=== PATIENT | female | born 1995 | race American Indian/Alaskan Native ===

== ENCOUNTER 2017-03-23 17:33 | Emergency (ER) | payer BC ==
[2017-03-23] MEDS ORDERED: Sodium Chloride 0.9% 10 ML Syringe FLUSH PRN (18:21)
[2017-03-23] MEDS ORDERED: Sodium Chloride 0.9% 1,000 ML IV ONE (18:21)
[2017-03-23] MEDS ORDERED: Ondansetron 4 MG/2 ML SDV IVPUSH ONE (18:21)
[2017-03-23] MEDS ORDERED: HYDROmorphone 0.5 MG/0.5 ML Syringe IVPUSH ONE (18:22)
--- NOTE | 2017-03-23 18:33 | EDM.PDOC ---
ED HPI GENERAL MEDICAL PROBLEM - General Chief Complaint: Abdominal Pain Stated Complaint: ABDOMINAL PAIN Time Seen by Provider: 03/23/17 18:07 Source of Information: Reports: Patient History Limitations: Reports: No Limitations - History of Present Illness INITIAL COMMENTS - FREE TEXT/NARRATIVE: Patient is a 21-year-old female presents ED complaining of right upper quadrant abdominal pain. Patient states she has a history of gallbladder issues and knows that she has some gallstones present from 7 years. States as of the last few months patient has been having pain to the right upper quadrant after eating. States the pain would radiate into her right shoulder. Pain predominantly comes on after eating. She has noticed the pain come on at night while she is sleeping as well. As of recent pain has been more frequent and severe. Currently the pain with admission to the ED is rated a 10 out of 10. Patient has no additional past medical history and currently taking no medications. Patient states she is not and is on the depo shot. Last bowel movement was this a.m. described as being hard. Patient states last meal was at noon today. Right Upper Abdominal Pain Score (Numeric/FACES): 10 - Related Data Allergies Allergy/AdvReac Type Severity Reaction Status Date / Time mangos Allergy Hives Uncoded 03/23/17 17:39 Home Meds: Home Meds Acetaminophen/HYDROcodone [[place] 325-5 MG] 1 tab PO Q6H PRN #15 tablet 03/23/17 [Rx] Dicyclomine [Bentyl] 20 mg PO TID PRN #15 tab 03/23/17 [Rx] Losartan/Hydrochlorothiazide [Losartan-HCTZ 50-12.5 MG] 1 tab PO DAILY 03/23/17 [History] Ondansetron [Zofran ODT] 4 mg PO Q6H PRN #12 tab.dis 03/23/17 [Rx] Past Medical History Cardiovascular History: Reports: Hypertension Gastrointestinal History: Reports: Other (See Below) Other Gastrointestinal History: gallstones Social & Family History - Tobacco Use Smoking Status *Q: Never Smoker - Recreational Drug Use Recreational Drug Use: No ED ROS GENERAL - Review of Systems Review Of Systems: See Below Constitutional: Reports: Decreased Appetite. Denies: Fever, Chills, Malaise, Weakness HEENT: Reports: No Symptoms Respiratory: Reports: No Symptoms Cardiovascular: Reports: No Symptoms GI/Abdominal: Reports: Abdominal Pain, Constipation, Decreased Appetite. Denies : Anorexia, Black Stool, Bloody Stool, Diarrhea, Distension, Flatus, Hematochezia, Nausea, Vomiting : Denies: Dysuria, Flank Pain, Frequency, Hematuria, Urgency Musculoskeletal: Denies: Back Pain ED EXAM, GI/ABD - Physical Exam Exam: See Below Exam Limited By: No Limitations General Appearance: Alert, WD/WN, Mild Distress Ears: Hearing Grossly Normal Nose: Normal Inspection Throat/Mouth: Normal Voice, No Airway Compromise Neck: Normal Inspection, Supple Respiratory/Chest: No Respiratory Distress, Lungs Clear, Normal Breath Sounds, No Accessory Muscle Use Cardiovascular: Normal Peripheral Pulses, Regular Rate, Rhythm GI/Abdominal Exam: Soft, No Organomegaly, No Distention, No Mass, Tender ( positive Lloyd sign , negative McBurney's point), Abnormal Bowel Sounds ( hyperactive), Other (obese) Back Exam: Normal Inspection, Full Range of Motion. No: CVA Tenderness (L), CVA Tenderness (R) Extremities: Normal Inspection, Non-Tender, No Pedal Edema, Normal Capillary Refill Neurological: Alert, Oriented, CN II-XII Intact Psychiatric: Normal Affect, Normal Mood Skin Exam: Warm, Dry, Intact, Normal Color Course - Vital Signs Last Recorded V/S: Last Vital Signs Temp 97.3 F 03/23/17 17:40 Pulse 78 03/23/17 23:31 Resp 16 03/23/17 23:31 BP 140/88 03/23/17 23:31 Pulse Ox 100 03/23/17 23:31 - Orders/Labs/Meds Orders: Active Orders 24 hr Category Date Time Status Peripheral IV Care [RC] . DIRECTED Care 03/23/17 18:21 Active Peripheral IV Insertion Adult [OM.PC] Stat Oth 03/23/17 18:20 Ordered Labs: Laboratory Tests 03/23/17 03/23/17 03/23/17 Range/Units 17:50 17:50 17:50 WBC 11.76 H (3.98-10.04) K/mm3 RBC 4.30 (3.98-5.22) M/mm3 Hgb 13.3 (11.2-15.7) gm/L Hct 41.4 (34.1-44.9) % MCV 96.3 H (79.4-94.8) fl MCH 30.9 (25.6-32.2) pg MCHC 32.1 L (32.2-35.5) g/dl RDW Std Deviation 52.4 H (36.4-46.3) fL Plt Count 341 (182-369) K/mm3 MPV 10.8 (9.4-12.3) fl Neut % (Auto) 46.9 (34.0-71.1) % Lymph % (Auto) 22.6 (19.3-51.7) % [place] % (Auto) 8.6 (4.7-12.5) % Eos % (Auto) 21.3 H (0.7-5.8) Baso % (Auto) 0.3 (0.1-1.2) % Neut # (Auto) 5.51 (1.56-6.13) K/mm3 Lymph # (Auto) 2.66 (1.18-3.74) K/mm3 [place] # (Auto) 1.01 H (0.24-0.36) K/mm3 Eos # (Auto) 2.51 H (0.04-0.36) K/mm3 Baso # (Auto) 0.04 (0.01-0.08) K/mm3 Manual Slide Review Abnormal smear Sodium 141 (136-145) mEq/L Potassium 3.6 (3.5-5.1) mEq/L Chloride 104 (98-107) mEq/L Carbon Dioxide 26 (21-32) mEq/L Anion Gap 14.6 (5-15) BUN 8 (7-18) mg/dL Creatinine 0.9 (0.55-1.02) mg/dL Est Cr Clr Drug Dosing 94.54 mL/min Estimated GFR (MDRD) > 60 (>60) mL/min BUN/Creatinine Ratio 8.9 L (14-18) Glucose 98 (74-106) mg/dL Calcium 9.3 (8.5-10.1) mg/dL Total Bilirubin 0.7 (0.2-1.0) mg/dL GGT (5-55) U/L AST 74 H (15-37) U/L ALT 102 H (14-59) U/L Alkaline Phosphatase 274 H (46-116) U/L C-Reactive Protein 0.2 (<1.0) mg/dL Total Protein 8.3 H (6.4-8.2) g/dl Albumin 3.8 (3.4-5.0) g/dl Globulin 4.5 gm/dL Albumin/Globulin Ratio 0.8 L (1-2) Lipase 63 L (73-393) U/L HCG, Qual Negative (NEGATIVE) Urine Color (Yellow) Urine Appearance (Clear) Urine pH (5.0-8.0) Ur Specific [place] (1.005-1.030) Urine Protein (Negative) Urine Glucose (UA) (Negative) Urine Ketones (Negative) Urine Occult Blood (Negative) Urine Nitrite (Negative) Urine Bilirubin (Negative) Urine Urobilinogen (0.2-1.0) Ur Leukocyte Esterase (Negative) Urine RBC (0-5) /hpf Urine WBC (0-5) /hpf Ur Epithelial Cells (0-5) /hpf Urine Bacteria (FEW) /hpf Urine Mucus (FEW) /hpf 03/23/17 03/23/17 Range/Units 17:50 18:41 WBC (3.98-10.04) K/mm3 RBC (3.98-5.22) M/mm3 Hgb (11.2-15.7) gm/L Hct (34.1-44.9) % MCV (79.4-94.8) fl MCH (25.6-32.2) pg MCHC (32.2-35.5) g/dl RDW Std Deviation (36.4-46.3) fL Plt Count (182-369) K/mm3 MPV (9.4-12.3) fl Neut % (Auto) (34.0-71.1) % Lymph % (Auto) (19.3-51.7) % [place] % (Auto) (4.7-12.5) % Eos % (Auto) (0.7-5.8) Baso % (Auto) (0.1-1.2) % Neut # (Auto) (1.56-6.13) K/mm3 Lymph # (Auto) (1.18-3.74) K/mm3 [place] # (Auto) (0.24-0.36) K/mm3 Eos # (Auto) (0.04-0.36) K/mm3 Baso # (Auto) (0.01-0.08) K/mm3 Manual Slide Review Sodium (136-145) mEq/L Potassium (3.5-5.1) mEq/L Chloride (98-107) mEq/L Carbon Dioxide (21-32) mEq/L Anion Gap (5-15) BUN (7-18) mg/dL Creatinine (0.55-1.02) mg/dL Est Cr Clr Drug Dosing mL/min Estimated GFR (MDRD) (>60) mL/min BUN/Creatinine Ratio (14-18) Glucose (74-106) mg/dL Calcium (8.5-10.1) mg/dL Total Bilirubin (0.2-1.0) mg/dL GGT 497 H (5-55) U/L AST (15-37) U/L ALT (14-59) U/L Alkaline Phosphatase (46-116) U/L C-Reactive Protein (<1.0) mg/dL Total Protein (6.4-8.2) g/dl Albumin (3.4-5.0) g/dl Globulin gm/dL Albumin/Globulin Ratio (1-2) Lipase (73-393) U/L HCG, Qual (NEGATIVE) Urine Color Light yellow (Yellow) Urine Appearance Clear (Clear) Urine pH 7.0 (5.0-8.0) Ur Specific [place] 1.015 (1.005-1.030) Urine Protein Negative (Negative) Urine Glucose (UA) Negative (Negative) Urine Ketones Negative (Negative) Urine Occult Blood Negative (Negative) Urine Nitrite Negative (Negative) Urine Bilirubin Negative (Negative) Urine Urobilinogen 1.0 (0.2-1.0) Ur Leukocyte Esterase Negative (Negative) Urine RBC Not seen (0-5) /hpf Urine WBC 0-5 (0-5) /hpf Ur Epithelial Cells 0-5 (0-5) /hpf Urine Bacteria Not seen (FEW) /hpf Urine Mucus Not seen (FEW) /hpf Meds: Medications Discontinued Medications Generic Name Dose Route Start Last Admin Trade Name Freq PRN Reason Stop Dose Admin Dicyclomine HCl Confirm 03/23/17 23:19 03/23/17 23:35 Bentyl Administered 03/23/17 23:20 20 mg Dose Administration 20 mg .ROUTE .STK-MED ONE Dicyclomine HCl 20 mg 03/23/17 23:21 Bentyl PO 03/23/17 23:22 ONETIME STA Glycopyrrolate 0.2 mg 03/23/17 22:36 03/23/17 23:20 Robinul IVPUSH 03/23/17 22:37 Not Given ONETIME ONE Hydromorphone HCl 0.5 mg 03/23/17 18:22 03/23/17 18:44 Dilaudid IVPUSH 03/23/17 18:23 0.5 mg ONETIME ONE Administration Hydromorphone HCl 1 mg 03/23/17 22:20 03/23/17 22:47 Dilaudid IVPUSH 03/23/17 22:21 1 mg ONETIME ONE Administration Sodium Chloride 1,000 mls @ 999 mls/hr 03/23/17 18:21 03/23/17 18:44 Normal Saline IV 03/23/17 19:21 999 mls/hr ONETIME ONE Administration Ondansetron HCl 4 mg 03/23/17 18:21 03/23/17 18:45 Zofran IVPUSH 03/23/17 18:22 4 mg ONETIME ONE Administration Sodium Chloride 10 ml 03/23/17 18:21 03/23/17 18:48 Saline Flush FLUSH 10 ml ASDIRECTED PRN Administration Keep Vein Open - Re-Assessments/Exams Free Text/Narrative Re-Assessment/Exam: Labs reviewed: White blood cell count 11.76, hemoglobin is 13.3, sodium 141, potassium 3.6, creatinine 0.9, AST 74, AST 102, alk phosphatase is 274, CRP 0.2 , total bilirubin 0.7, lipase 63, and hCG is negative. Ultrasound will be delayed. Patient actually ate at approximately 3:00 this afternoon. This was not disclosed to me with initial examination. Ultrasound will be obtained at 9:00. X-ray of the abdomen: nonspecific air in stool pattern with no acute findings. Final interpretation is pending. Ultrasound revealed: Cholelithiasis 03/23/17 22:[address] Dia General Surgeon states he can see the patient in his office. Call tomorrow morning to schedule appt to be seen either tomorrow or of this week. Suggested robinul 0.2mg IVP. Discharge home with bentyl and narcotic pain medications. Per nursing Robinul is not available. Ordered Bentyl 20 mg by mouth prior to patient leaving. Departure - Departure Time of Disposition: 22:39 Disposition: Home, Self-Care 01 Condition: Good Clinical Impression: Biliary colic - Discharge Information Prescriptions: Acetaminophen/HYDROcodone [[place] 325-5 MG] 1 tab PO Q6H PRN #15 tablet PRN Reason: Pain (Severe 7-10) Dicyclomine [Bentyl] 20 mg PO TID PRN #15 tab PRN Reason: Other Ondansetron [Zofran ODT] 4 mg PO Q6H PRN #12 tab.dis PRN Reason: Nausea/Vomiting Instructions: Abdominal Pain, Adult, [id number], Pain Medicine Instructions, [id number] Referrals: PCP,Not In Area [Primary Care Provider] - Shawn Dia MD [Physician] - Forms: ED Department Discharge Additional Instructions: You are experiencing biliary colic with ultrasound revealing gallstones present. I have spoken with Dr. Dia general surgeon on-call. He will see you tomorrow or in his clinic. Call his office tomorrow morning to schedule an appointment. For severe pain take [place] one tab every 4-6 hours. For nausea take Zofran 4 mg every 6 hours. Will have you take Bentyl 20 mg 3 times a day as needed. Start MiraLAX one capful every day with copious amounts of water and Colace 100 mg twice a day for 5 days. Take MiraLAX for at least one month. No driving this evening since receiving a sedative medications. Return to ED for any new or worsening symptoms. Suggest sticking with a low residue diet until evaluated by Dr. Dia. Refrain from any fatty foods. - My Orders Last 24 Hours: My Active Orders 03/23/17 18:20 Peripheral IV Insertion Adult [OM.PC] Stat 03/23/17 18:21 Peripheral IV Care [RC] . DIRECTED - Assessment/Plan Last 24 Hours: My Active Orders 03/23/17 18:20 Peripheral IV Insertion Adult [OM.PC] Stat 03/23/17 18:21 Peripheral IV Care [RC] . DIRECTED
[2017-03-23] MEDS ORDERED: HYDROmorphone 1 MG/ML Syringe IVPUSH ONE (22:20)
[2017-03-23] MEDS ORDERED: Glycopyrrolate 0.2 MG/ML SDV IVPUSH ONE (22:36)
[2017-03-23] MEDS ORDERED: Dicyclomine 10 MG Cap ONE (23:19)
[2017-03-23] MEDS ORDERED: Dicyclomine 10 MG Cap PO STA (23:21)
[2017-03-23 23:33] VITALS: BP 140/88
--- NOTE | 2017-03-24 07:06 | CR ---
Abdomen: Supine and upright views of the abdomen were obtained. Comparison: No previous study. Bowel gas pattern is within normal limits. Minimal increased stool is noted within the colon. No free air is seen. No abnormal calcifications or discrete soft tissue abnormality is seen. Impression: 1. Incidental findings. Diagnostic code #2
--- NOTE | 2017-03-24 07:15 | US ---
Limited abdominal ultrasound: Multiple real-time images were obtained of the upper right abdomen. Comparison: No previous abdominal ultrasound. Liver shows no focal parenchymal abnormality. Single large gallstone noted within the gallbladder measuring 2.6 cm. No gallbladder wall thickening or biliary duct dilatation is seen. Visualized portions of the pancreas are within normal limits. Right kidney shows no hydronephrosis or mass. Right kidney measures 11.6 cm in length. Inferior vena cava is patent. Impression: 1. Single large gallstone within the gallbladder. No gallbladder wall thickening or biliary duct dilatation is seen. 2. No additional abnormality is identified on right upper quadrant abdominal ultrasound. Diagnostic code #3 I agree with preliminary report issued by [facility] ([facility] preliminary report dictated on 03/23/17, 11:01 PM Central Time)
== END 2017-03-23 23:30 | disposition home or self-care (01) ==
LOC: JD.ED 17:33
DX: K80.50 Calculus of bile duct without cholangitis or cholecystitis without obstruction (principal); I10 Essential (primary) hypertension; Z91.048 Other nonmedicinal substance allergy status
CPT/HCPCS: 36415; 74020; 76705; 80053; 81001; 82977; 83690; 84703; 85025; 86140; 96361; 96374; 96375; 96376; 99285; A9270; J1170; J2405; J7040; J7050; 99284

== ENCOUNTER 2017-03-27 08:01 | Day surgery (SDC) | payer BC ==
[~2017-03-27 08:01] MED LIST: Lidocaine 1%/Sod Bicarbonate in NS 8.4% 1 ML Syringe IV PRN; Sodium Chloride 0.9% 10 ML Syringe FLUSH PRN
[2017-03-27] MEDS ORDERED: Lidocaine 1% with EPINEPHrine 1:100,000 20 ML MDV ONE (08:13)
[2017-03-27] MEDS ORDERED: Bupivacaine 0.5%/EPINEPHrine 1:200,000 50 ML MDV ONE (08:14)
[2017-03-27] MEDS: Lactated Ringers 1,000 ML IV SCH ×2 (08:25→13:19)
[2017-03-27] MEDS ORDERED: fentaNYL 250 MCG/5 ML SDV ONE (08:45)
[2017-03-27] MEDS ORDERED: Midazolam 1 MG/ML 2 ML SDV ONE (08:45)
[2017-03-27] MEDS ORDERED: Propofol 200 MG/20 ML SDV ONE (08:45)
--- NOTE | 2017-03-27 08:45 | PCM.PREANE ---
Preanesthetic Assessment - Anesthesia/Transfusion/Family Hx Anesthesia History: No Prior Anesthesia Family History of Anesthesia Reaction: No Transfusion History: No Prior Transfusion(s) - Review of Systems General: No Symptoms Pulmonary: No Symptoms Cardiovascular: Other (HTN controlled with medication ) Gastrointestinal: Abdominal Pain Neurological: No Symptoms Other: Reports: None - Physical Assessment NPO Status Date: 03/26/17 NPO Status Time: 15:30 O2 Sat by Pulse Oximetry: 99 Respiratory Rate: 18 Vital Signs: Last Vital Signs Temp 36.0 C 03/27/17 08:05 Pulse 78 03/27/17 08:05 Resp 18 03/27/17 08:05 BP 140/98 H 03/27/17 08:05 Pulse Ox 99 03/27/17 08:05 Height: 1.7 m Weight: 113.398 kg ASA Class: 2 Mental Status: Alert & Oriented x3 Airway Class: Mallampati = 1 Dentition: Reports: Normal Dentition Thyro-Mental Finger Breadths: 3 Mouth Opening Finger Breadths: 3 ROM/Head Extension: Full Lungs: Clear to Auscultation, Normal Respiratory Effort Cardiovascular: Regular Rate, Regular Rhythm - Lab Values: Laboratory Last Values Urine HCG, Qual Negative (NEGATIVE) 03/27/17 08:05 - Allergies Allergies/Adverse Reactions: Allergies Allergy/AdvReac Type Severity Reaction Status Date / Time mangos Allergy Hives Uncoded 03/27/17 07:53 - Blood Blood Available: No Product(s) Available: None - Anesthesia Plan Pre-Op Medication Ordered: None - Acknowledgements Anesthesia Type Planned: General Anesthesia Pt an Appropriate Candidate for the Planned Anesthesia: Yes Alternatives and Risks of Anesthesia Discussed w Pt/Guardian: Yes Pt/Guardian Understands and Agrees with Anesthesia Plan: Yes PreAnesthesia Questionnaire HEENT History: Reports: Impaired Vision, Other (See Below) Other HEENT History: glasses, contacts Cardiovascular History: Reports: Hypertension Respiratory History: Reports: None Gastrointestinal History: Reports: Other (See Below) Other Gastrointestinal History: gallstones, biliary colic Genitourinary History: Reports: None ARTIST AGENT History: Reports: None Musculoskeletal History: Reports: None Neurological History: Reports: None Psychiatric History: Reports: None Endocrine/Metabolic History: Reports: None Hematologic History: Reports: None Immunologic History: Reports: None Oncologic (Cancer) History: Reports: None Dermatologic History: Reports: None - Past Surgical History Head Surgeries/Procedures: Reports: None Respiratory Surgical History: Reports: None Female Surgical History: Reports: None Endocrine Surgical History: Reports: None Neurological Surgical History: Reports: None Musculoskeletal Surgical History: Reports: None Dermatological Surgical History: Reports: None - SUBSTANCE USE Smoking Status *Q: Never Smoker Recreational Drug Use History: No - HOME MEDS Home Medications: Home Meds oxyCODONE HCl/Acetaminophen [Percocet 10-325 mg Tablet] 1 tab PO Q6H PRN [History] - CURRENT (IN HOUSE) MEDS Current Meds: Current Medications Lactated Ringer's (Ringers, Lactated) 1,000 mls @ 125 mls/hr IV ASDIRECTED CLAIRE Lidocaine/Sodium Bicarbonate (Buffered Lidocaine 1% In Ns 8.4%) 0.25 ml IV ONETIME PRN PRN Reason: Prior to IV Start Sodium Chloride (Saline Flush) 10 ml FLUSH ASDIRECTED PRN PRN Reason: Keep Vein Open Discontinued Medications Bupivacaine HCl/Epinephrine Bitart (Marcaine 0.5%/Epinephrine 1:200,000) Confirm Administered Dose 50 ml .ROUTE .STK-MED ONE Stop: 03/27/17 08:15 Dexamethasone (Dexamethasone) Confirm Administered Dose 20 mg .ROUTE .STK-MED ONE Stop: 03/27/17 08:49 Fentanyl (Sublimaze) Confirm Administered Dose 250 mcg .ROUTE .STK-MED ONE Stop: 03/27/17 08:46 Lidocaine/Epinephrine (Xylocaine 1% With Epinephrine 1:100,000) Confirm Administered Dose 20 ml .ROUTE .STK-MED ONE Stop: 03/27/17 08:14 Midazolam HCl (Versed 1 Mg/Ml) Confirm Administered Dose 2 mg .ROUTE .STK-MED ONE Stop: 03/27/17 08:46 Ondansetron HCl (Zofran) Confirm Administered Dose 4 mg .ROUTE .STK-MED ONE Stop: 03/27/17 08:49 Propofol (Diprivan 20 Ml) Confirm Administered Dose 200 mg .ROUTE .STK-MED ONE Stop: 03/27/17 08:46 Rocuronium [place] (Zemuron) Confirm Administered Dose 50 mg .ROUTE .STK-MED ONE Stop: 03/27/17 08:49
[2017-03-27] MEDS ORDERED: Ondansetron 4 MG/2 ML SDV ONE (08:48)
[2017-03-27] MEDS ORDERED: Rocuronium 50 MG/5 ML Vial ONE (08:48)
[2017-03-27] MEDS ORDERED: Dexamethasone 4 MG/ML 5 ML MDV ONE (08:48)
[2017-03-27] MEDS ORDERED: HYDROmorphone 1 MG/ML Syringe ONE ×2 (09:56→10:40)
[2017-03-27] MEDS ORDERED: Lactated Ringers 1,000 ML ONE (10:42)
[2017-03-27] MEDS ORDERED: fentaNYL 100 MCG/2 ML SDV ONE ×3 (11:26→11:54)
[2017-03-27] MEDS ORDERED: Ketorolac 30 MG/ML SDV ONE (11:38)
[2017-03-27] MEDS ORDERED: Lidocaine 1%/Sod Bicarbonate in NS 8.4% 1 ML Syringe PRN (11:45)
[2017-03-27] MEDS ORDERED: Ketorolac 30 MG/ML SDV IVPUSH ONE (11:45)
--- NOTE | 2017-03-27 12:12 | PCM.OPNOTE ---
- General Post-Op/Procedure Note Date of Surgery/Procedure: 03/27/17 Operative Procedure(s): Laparoscopic cholecystectomy Findings: Acute and chronic cholecystitis secondary to cholelithiasis. Patient had a 2-1/ 2 cm diameter greenish yellow stone. Pre Op Diagnosis: Biliary colic secondary to cholelithiasis Post-Op Diagnosis: Same Anesthesia Technique: General ET Tube, Local Primary Surgeon: Shawn Dia Pathology: Gallbladder and contents EBL in mLs: 10 Complications: None Condition: Good Free Text/Narrative:: After adequate general endotracheal tube anesthesia was obtained the patient's abdomen was prepped and draped sterilely for a laparoscopic cholecystectomy. A supraumbilical incision was made with a 15 blade after local analgesia was given. The incision was deepened with scissors to the midline which was opened with a 15 blade. A 12 mm camera port was inserted followed by CO2 pneumoperitoneum. The 3--5 mm working ports were placed along the right costal margin. The gallbladder was found to be distended. I made a small incision the dome of the gallbladder and aspirated its contents. The dome of the gallbladder was then grasped and it along with the liver was retracted in a cephalad direction. I grasped Crouch's pouch then dissected out the cystic duct and cystic artery. The cystic duct was clipped in continuity with 5 mm clips and divided with scissors. There was an anterior posterior branch related to the cystic artery which was controlled with clips as well. I then took the gallbladder down in a retrograde fashion with cautery. The gallbladder and its contents were placed in a specimen bag and removed via the umbilicus. I irrigated out the gallbladder bed and the right upper quadrant with saline. The area was hemostatic. There was no obvious bile duct or bowel injury. The abdomen was then decannulated under direct vision with no bleeding from the port sites. The subumbilical incision was closed with a [id number] 0 Vicryl suture. The subcutaneous tissues and skin were closed with Vicryl as well. Steri-Strips and gauze were used for the dressing. Photographs were taken for the patient for the record. The stone was returned to the patient. There were no complications.
[2017-03-27] MEDS ORDERED: Acetaminophen/oxyCODONE 325-5 MG Tab PO ONE (12:20)
[2017-03-27] MEDS ORDERED: fentaNYL 100 MCG/2 ML SDV IVPUSH PRN (12:30)
[2017-03-27] MEDS ORDERED: HYDROmorphone 0.5 MG/0.5 ML Syringe IVPUSH PRN (12:30)
[2017-03-27 14:14] VITALS: BP 145/79
== END 2017-03-27 14:05 | disposition home or self-care (01) ==
LOC: JD.SDS 08:01
PROVIDERS: ATTEND Surgery
PROC: 0FT44ZZ Resection of Gallbladder, Percutaneous Endoscopic Approach (ICD-10-PCS; principal; 2017-03-27)
DX: K81.1 Chronic cholecystitis (principal); I10 Essential (primary) hypertension; Z91.018 Allergy to other foods
CPT/HCPCS: 47562; 81025; A9270; J1100; J1170; J1885; J2250; J2405; J3010; J7120; 00790; J2704

== ENCOUNTER 2018-09-21 15:12 | Emergency (ER) | payer BC ==
[2018-09-21] MEDS ORDERED: Ondansetron 4 MG/2 ML SDV IVPUSH ONE (15:54)
[2018-09-21] MEDS ORDERED: Sodium Chloride 0.9% 10 ML Syringe FLUSH PRN (15:54)
[2018-09-21] MEDS ORDERED: LORazepam 2 MG/ML SDV IVPUSH ONE (15:54)
[2018-09-21] MEDS: Sodium Chloride 0.9% 1,000 ML IV SCH ×2 (16:20→17:42)
--- NOTE | 2018-09-21 17:02 | EDM.PDOCBH ---
ED HPI GENERAL MEDICAL PROBLEM - General Chief Complaint: Drug or Alcohol Abuse Stated Complaint: RT ARM INJURY ALCOHOL DETOX Time Seen by Provider: 09/21/18 15:44 Source of Information: Reports: Patient, RN Notes Reviewed - History of Present Illness INITIAL COMMENTS - FREE TEXT/NARRATIVE: 23-year-old female has been brought here by mother with 2 concerns the one being a fall last evening right elbow and proximal forearm pain. So she is going through some alcohol withdrawal today. Apparently she has been drinking fairly heavy for some time. Sounds like her last alcohol was last evening. Feels mildly shaky at this time. She has not been eating much. She did vomit once earlier today. No current chest or abdominal pain. She is scheduled to see an addiction intake counselor tomorrow to try get a plan of treatment figured out. right arm Pain Score (Numeric/FACES): 7 - Related Data Allergies Allergy/AdvReac Type Severity Reaction Status Date / Time mangos Allergy Hives Uncoded 09/21/18 15:33 Home Meds: Home Meds Carisoprodol 350 mg PO BEDTIME 09/21/18 [History] Dextroamphetamine/Amphetamine [Dextroamp-Amphetamin 30 mg Tab] 30 mg PO DAILY [History] Escitalopram [Lexapro] 10 mg PO DAILY 09/21/18 [History] Hydrochlorothiazide/Losartan [Hyzaar 50-12.5 MG] 12.5 - 50 mg PO DAILY 09/21/18 [History] Past Medical History HEENT History: Reports: Impaired Vision, Other (See Below) Other HEENT History: glasses, contacts Cardiovascular History: Reports: Hypertension Respiratory History: Reports: None Gastrointestinal History: Reports: Other (See Below) Other Gastrointestinal History: gallstones, biliary colic Genitourinary History: Reports: None PELTS SKINNER History: Reports: None Musculoskeletal History: Reports: None Neurological History: Reports: None Psychiatric History: Reports: Addiction Endocrine/Metabolic History: Reports: None Hematologic History: Reports: None Immunologic History: Reports: None Oncologic (Cancer) History: Reports: None Dermatologic History: Reports: None - Past Surgical History Head Surgeries/Procedures: Reports: None Respiratory Surgical History: Reports: None Female Surgical History: Reports: None Endocrine Surgical History: Reports: None Neurological Surgical History: Reports: None Musculoskeletal Surgical History: Reports: None Dermatological Surgical History: Reports: None Social & Family History - Family History Family Medical History: Noncontributory - Tobacco Use Smoking Status *Q: Never Smoker - Caffeine Use Caffeine Use: Reports: Soda - Alcohol Use Days Per Week of Alcohol Use: 7 Number of Drinks Per Day: 10 Total Drinks Per Week: 70 - Recreational Drug Use Recreational Drug Use: Yes Drug Use in Last 12 Months: Yes Recreational Drug Type: Reports: Marijuana/Hashish Other Recreational Drug Type: is currently on drug patch, for marijuana use, has not used since 02/2018 ED ROS GENERAL - Review of Systems Review Of Systems: See Below Constitutional: Denies: Fever, Chills HEENT: Reports: No Symptoms Respiratory: Denies: Shortness of Breath Cardiovascular: Denies: Chest Pain GI/Abdominal: Reports: Decreased Appetite (Now better), Nausea. Denies: Abdominal Pain, Vomiting Musculoskeletal: Reports: Joint Pain (Right elbow and right proximal forearm) Skin: Reports: No Symptoms Neurological: Denies: Numbness, Tingling ED EXAM, BEHAVIORAL HEALTH - Physical Exam Exam: See Below General Appearance: Alert, Anxious (Mild), Mild Distress Eye Exam: Bilateral Eye: PERRL Throat/Mouth: Normal Inspection Head: Atraumatic. No: Facial Swelling Neck: Supple, Full Range of Motion Respiratory/Chest: No Respiratory Distress, Lungs Clear, Normal Breath Sounds Cardiovascular: Tachycardia GI/Abdominal: Soft, Non-Tender Back Exam: No: CVA Tenderness (L), CVA Tenderness (R) Extremities: Other (Right elbow is tender laterally, anteriorly right proximal forearm also mild to moderately tender, no visible deformity, no visible swelling). No: Joint Swelling Neurological: Alert, No Motor/Sensory Deficits, Other (Mild resting tremor, finger to nose is good) Skin Exam: Dry, Normal color COURSE, BEHAVIORAL HEALTH COMP - Course Vital Signs: Last Vital Signs Temp 99.4 F 09/21/18 17:59 Pulse 118 H 09/21/18 17:59 Resp 14 09/21/18 17:59 BP 162/67 H 09/21/18 17:59 Pulse Ox 99 09/21/18 17:59 Orders, Labs, Meds: Active Orders 24 hr Category Date Time Status Peripheral IV Care [RC] . DIRECTED Care 09/21/18 15:55 Active Elbow Min 3V Rt [CR] Stat Exams 09/21/18 15:55 Taken Peripheral IV Insertion Adult [OM.PC] Stat Oth 09/21/18 15:54 Ordered Laboratory Tests 09/21/18 09/21/18 09/21/18 Range/Units 16:13 16:15 16:15 WBC 16.00 H (3.98-10.04) K/mm3 RBC 4.32 (3.98-5.22) M/mm3 Hgb 13.2 (11.2-15.7) gm/L Hct 40.6 (34.1-44.9) % MCV 94.0 (79.4-94.8) fl MCH 30.6 (25.6-32.2) pg MCHC 32.5 (32.2-35.5) g/dl RDW Std Deviation 47.2 H (36.4-46.3) fL Plt Count 353 (182-369) K/mm3 MPV 9.6 (9.4-12.3) fl Neut % (Auto) 73.3 H (34.0-71.1) % Lymph % (Auto) 22.5 (19.3-51.7) % [place] % (Auto) 3.8 L (4.7-12.5) % Eos % (Auto) 0 L (0.7-5.8) Baso % (Auto) 0.1 (0.1-1.2) % Neut # (Auto) 11.73 H (1.56-6.13) K/mm3 Lymph # (Auto) 3.60 (1.18-3.74) K/mm3 [place] # (Auto) 0.61 H (0.24-0.36) K/mm3 Eos # (Auto) 0.00 L (0.04-0.36) K/mm3 Baso # (Auto) 0.02 (0.01-0.08) K/mm3 Sodium 145 (136-145) mEq/L Potassium 3.6 (3.5-5.1) mEq/L Chloride 107 (98-107) mEq/L Carbon Dioxide 24 (21-32) mEq/L Anion Gap 17.6 H (5-15) BUN 10 (7-18) mg/dL Creatinine 2.6 H (0.55-1.02) mg/dL Est Cr Clr Drug Dosing 35.77 mL/min Estimated GFR (MDRD) 22 (>60) mL/min BUN/Creatinine Ratio 3.8 L (14-18) Glucose 127 H (74-106) mg/dL Calcium 8.3 L (8.5-10.1) mg/dL Total Bilirubin 0.2 (0.2-1.0) mg/dL AST 84 H (15-37) U/L ALT 38 (14-59) U/L Alkaline Phosphatase 116 (46-116) U/L Total Protein 7.9 (6.4-8.2) g/dl Albumin 3.8 (3.4-5.0) g/dl Globulin 4.1 gm/dL Albumin/Globulin Ratio 0.9 L (1-2) Ethyl Alcohol 0.00 (0.00) gm% Medications Discontinued Medications Generic Name Dose Route Start Last Admin Trade Name Freq PRN Reason Stop Dose Admin Hydrocodone Bitart/Acetaminophen 1 tab 09/21/18 17:53 09/21/18 17:57 [place] 325-5 Mg PO 09/21/18 17:54 1 tab ONETIME ONE Administration Sodium Chloride 1,000 mls @ 999 mls/hr 09/21/18 16:00 09/21/18 17:20 Normal Saline IV Infused ONETIME CLAIRE Infusion Sodium Chloride Confirm 09/21/18 17:39 09/21/18 17:48 Normal Saline Administered 09/21/18 17:40 Not Given Dose 1,000 mls @ as directed .ROUTE .STK-MED ONE Sodium Chloride 1,000 mls @ 999 mls/hr 09/21/18 17:45 09/21/18 17:40 Normal Saline IV 999 mls/hr ONETIME CLAIRE Administration Ketorolac Tromethamine 30 mg 09/21/18 17:30 09/21/18 17:29 Toradol IVPUSH 30 mg ONETIME CLAIRE Administration Lorazepam 1 mg 09/21/18 15:54 09/21/18 16:16 Ativan IVPUSH 09/21/18 15:55 1 mg ONETIME ONE Administration Ondansetron HCl 4 mg 09/21/18 15:54 09/21/18 16:18 Zofran IVPUSH 09/21/18 15:55 4 mg ONETIME ONE Administration Sodium Chloride 10 ml 09/21/18 15:54 09/21/18 16:15 Saline Flush FLUSH 10 ml ASDIRECTED PRN Administration Keep Vein Open Re-Assessment/Re-Exam: X-rays of right elbow and proximal forearm are negative for fracture. Have ordered Ben wrap for right elbow, proximal forearm. Will give her Toradol 30 IV for discomfort. She has now received most of her 1 L normal saline. She is able to drink water. Have given Ativan 1 mg IV and that is helping her. They are comfortable going home at this time. She does have an appointment tomorrow as noted with addiction counselor to look at treatment options. Re-Assessment/Re-Exam Date: 09/22/18 (we did give a total of 2 Liters NS, ativan 1 mg IV, resting comfortably with that, heart rate did come down to about 100 to 110, she has an appt. to see addition counselor 09/22. X rays of elbow, prox forearm neg. for fx. ) Departure - Departure Time of Disposition: 17:23 Disposition: Home, Self-Care 01 Condition: Fair Clinical Impression: Fall Qualifiers: Encounter type: initial encounter Qualified Code(s): W19.XXXA - Unspecified fall, initial encounter Contusion of elbow, right Qualifiers: Encounter type: initial encounter Qualified Code(s): S50.01XA - Contusion of right elbow, initial encounter Alcohol withdrawal Qualifiers: Complication of substance-induced condition: uncomplicated Qualified Code(s): F10.230 - Alcohol dependence with withdrawal, uncomplicated - Discharge Information Instructions: Alcohol Withdrawal, [id number] Referrals: PCP,None [Primary Care Provider] - Additional Instructions: Drink plenty of water to maintain hydration, you've been given 1 L of normal saline while here in the ED, IV Toradol for discomfort, IV Ativan to help with withdrawal symptoms. You may continue Ativan 1 mg every 6-8 hours for anxiety, alcohol withdrawal symptoms as needed. See her addiction counselor tomorrow as planned. Return to ED as needed. - My Orders Last 24 Hours: My Active Orders 09/21/18 15:54 Peripheral IV Insertion Adult [OM.PC] Stat 09/21/18 15:55 Peripheral IV Care [RC] . DIRECTED Elbow Min 3V Rt [CR] Stat - Assessment/Plan Last 24 Hours: My Active Orders 09/21/18 15:54 Peripheral IV Insertion Adult [OM.PC] Stat 09/21/18 15:55 Peripheral IV Care [RC] . DIRECTED Elbow Min 3V Rt [CR] Stat
[2018-09-21] MEDS ORDERED: Ketorolac 30 MG/ML SDV IVPUSH SCH (17:30)
[2018-09-21] MEDS ORDERED: Sodium Chloride 0.9% 1,000 ML ONE (17:39)
[2018-09-21] MEDS ORDERED: Sodium Chloride 0.9% 1,000 ML IV SCH (17:45)
[2018-09-21] MEDS ORDERED: Acetaminophen/HYDROcodone 325-5 MG Tab PO ONE (17:53)
[2018-09-21 18:00] VITALS: BP 162/67
--- NOTE | 2018-09-22 10:01 | CR ---
Right elbow: Four views of the right elbow were obtained. Comparison: No prior elbow exam. Joint spaces are preserved. No joint effusion is seen. No acute fracture or other abnormality is seen. Impression: 1. No abnormality is identified on right elbow study. Diagnostic code #1
== END 2018-09-21 19:10 | disposition home or self-care (01) ==
LOC: JD.ED 15:12
DX: S50.01XA Contusion of right elbow, initial encounter (principal); F10.230 Alcohol dependence with withdrawal, uncomplicated; I10 Essential (primary) hypertension; Z79.899 Other long term (current) drug therapy; Z91.018 Allergy to other foods; W18.30XA Fall on same level, unspecified, initial encounter
CPT/HCPCS: 36415; 73080; 80053; 85025; 96361; 96374; 96375; 99285; A9270; G0480; J1885; J2060; J2405; J7040

== ENCOUNTER 2020-06-25 10:59 | Emergency (ER) | payer BC, OTHER ==
[2020-06-25 11:13] VITALS: BP 136/91; PULSE 91
--- NOTE | 2020-06-25 11:19 | EDM.PDOC ---
ED HPI GENERAL MEDICAL PROBLEM - General Chief Complaint: Respiratory Problem Stated Complaint: CHEST PAIN/SOB Time Seen by Provider: 06/25/20 11:07 Source of Information: Reports: Patient, RN Notes Reviewed History Limitations: Reports: No Limitations - History of Present Illness INITIAL COMMENTS - FREE TEXT/NARRATIVE: Patient is a 25-year-old female who presents to the ED for ongoing chest discomfort and shortness of breath. The patient was seen yesterday evening in the [facility] ER at around 6 PM, and she was diagnosed with a "double pneumonia". She did have a COVID-19 test at that time and it was negative. She was given amoxicillin for antibiotics, her first dose was 1 hour ago. She states that she went home, went to bed and was not able to get much sleep due to the pain in her chest. She states that she can only take small shallow breaths, as it is too painful to take in a deep breath. She states that this produces sharp shooting pains throughout her chest, and is also hard to lay down. She notes this is the third day of her symptoms. Chest Pain Score (Numeric/FACES): 10 - Related Data Allergies Allergy/AdvReac Type Severity Reaction Status Date / Time mangos Allergy Hives Uncoded 09/21/18 15:33 Home Meds: Home Meds Dextroamphetamine/Amphetamine [Dextroamp-Amphetamin 30 mg Tab] 30 mg PO DAILY 09/21/18 [History] Escitalopram [Lexapro] 10 mg PO DAILY 09/21/18 [History] Hydrochlorothiazide/Losartan [Hyzaar 50-12.5 MG] 12.5 - 50 mg PO DAILY 09/21/18 [History] carisoprodoL [Carisoprodol] 350 mg PO BEDTIME 09/21/18 [History] Past Medical History HEENT History: Reports: Impaired Vision, Other (See Below) Other HEENT History: glasses, contacts Cardiovascular History: Reports: Hypertension Gastrointestinal History: Reports: Other (See Below) Other Gastrointestinal History: gallstones, biliary colic Psychiatric History: Reports: Addiction Social & Family History - Family History Family Medical History: Noncontributory - Tobacco Use Tobacco Use Status *Q: Never Tobacco User - Caffeine Use Caffeine Use: Reports: Soda - Recreational Drug Use Recreational Drug Use: Yes Drug Use in Last 12 Months: Yes ED ROS GENERAL - Review of Systems Review Of Systems: Comprehensive ROS is negative, except as noted in HPI. ED EXAM, GENERAL - Physical Exam Exam: See Below Exam Limited By: No Limitations General Appearance: Alert, WD/WN, No Apparent Distress, Anxious Respiratory/Chest: No Respiratory Distress, Lungs Clear, No Accessory Muscle Use, Chest Non-Tender, Decreased Breath Sounds (diffuse bilaterally, the patient is taking small shallow breaths at this time.) Cardiovascular: Normal Peripheral Pulses, Regular Rate, Rhythm, No Murmur Peripheral Pulses: 2+: Radial (L), Radial (R) Extremities: Normal Inspection, Normal Capillary Refill Neurological: Alert, Oriented, Normal Cognition, No Motor/Sensory Deficits Psychiatric: Normal Affect, Normal Mood Skin Exam: Warm, Dry, Intact, Normal Color, No Rash Course - Vital Signs Last Recorded V/S: Last Vital Signs Temp 97.2 F 06/25/20 11:10 Pulse 91 06/25/20 11:10 Resp 20 06/25/20 11:10 BP 136/91 H 06/25/20 11:10 Pulse Ox 100 06/25/20 11:10 - Orders/Labs/Meds Orders: Active Orders 24 hr Category Date Time Status RT Post Treatment Assessment [RC] Click to Edit Care 06/25/20 13:26 Ordered RT Pre-Treatment Assessment [RC] Click to Edit Care 06/25/20 13:26 Ordered Albuterol [Proventil HFA] Med 06/25/20 13:26 Once See Dose Instructions INH ONETIME ONE Meds: Medications Discontinued Medications Generic Name Dose Route Start Last Admin Trade Name Dada PRN Reason Stop Dose Admin Hydromorphone HCl 0.5 mg 06/25/20 12:32 06/25/20 12:52 Dilaudid IM 06/25/20 12:33 0.5 mg ONETIME ONE Administration Ketorolac Tromethamine 60 mg 06/25/20 11:27 06/25/20 11:57 Toradol IM 06/25/20 11:28 60 mg ONETIME ONE Administration Lorazepam 1 mg 06/25/20 11:27 06/25/20 11:55 Ativan IM 06/25/20 11:28 1 mg ONETIME ONE Administration - Re-Assessments/Exams Free Text/Narrative Re-Assessment/Exam: 06/25/20 11:31 Patient presents to the ED for the evaluation of her ongoing chest pain or shortness of breath. She states she had a thorough work-up in the [facility] ER last night, is not requesting any further imaging or studies, but she states she could not get the pain under control at home. At this time I have ordered 1 mg Ativan and 60 mg Toradol for management, as a portion of this seems to be anxiety. 06/25/20 12:31 She has called twice, and states that her pain has not been improved with the Toradol. We will try 0.5mg IM Dilaudid for ongoing management. Departure - Departure Time of Disposition: 13:27 Disposition: Home, Self-Care 01 Condition: Good Clinical Impression: Chest discomfort - Discharge Information *PRESCRIPTION DRUG MONITORING PROGRAM REVIEWED*: No *COPY OF PRESCRIPTION DRUG MONITORING REPORT IN PATIENT CAROL: No Instructions: Chest Wall Pain, [id number] Referrals: PCP,None [Primary Care Provider] - Forms: ED Department Discharge Additional Instructions: You were evaluated in the ER today for your ongoing chest discomfort after a diagnosis of pneumonia. You will need to continue to take the antibiotics that were previously given to you, these antibiotic can take up to 48 hours to start working. If you do not notice much symptomatic relief within 72 hours or 3 days, I recommend you seek care for reevaluation. You were given some medications in the ER, which did seem to help provide you relief for your symptoms. You were also given an albuterol inhaler for further symptomatic relief. Please use 2 puffs 4 times a day as needed for further shortness of breath/cough. Please return to the ER at any time if symptoms change or worsen. Sepsis Event Note (ED) - Evaluation Sepsis Screening Result: No Definite Risk - Focused Exam Vital Signs: Vital Signs Temp Pulse Resp BP Pulse Ox 06/25/20 11:10 97.2 F 91 20 136/91 H 100 - My Orders Last 24 Hours: My Active Orders 06/25/20 13:26 RT Post Treatment Assessment [RC] Click to Edit RT Pre-Treatment Assessment [RC] Click to Edit Albuterol [Proventil HFA] See Dose Instructions INH ONETIME ONE - Assessment/Plan Last 24 Hours: My Active Orders 06/25/20 13:26 RT Post Treatment Assessment [RC] Click to Edit RT Pre-Treatment Assessment [RC] Click to Edit Albuterol [Proventil HFA] See Dose Instructions INH ONETIME ONE
[2020-06-25] MEDS ORDERED: Ketorolac 60 MG/2 ML SDV IM ONE (11:27)
[2020-06-25] MEDS ORDERED: LORazepam 2 MG/ML SDV IM ONE (11:27)
[2020-06-25] MEDS ORDERED: HYDROmorphone 0.5 MG/0.5 ML Syringe IM ONE (12:32)
[2020-06-25] MEDS ORDERED: Albuterol 6.7 GM Inhaler INH ONE (13:26)
== END 2020-06-25 13:35 | disposition home or self-care (01) ==
LOC: JD.ED 10:59
DX: R07.89 Other chest pain (principal); R06.02 Shortness of breath; I10 Essential (primary) hypertension; Z88.8 Allergy status to other drugs, medicaments and biological substances; Z79.899 Other long term (current) drug therapy
CPT/HCPCS: 94640; 96372; 99284; A9270; J1170; J1885; J2060; 99283

== ENCOUNTER 2022-08-29 16:21 | Emergency (ER) | payer MEDICAID ==
[2022-08-29 16:35] VITALS: BP 111/62; PULSE 85
== END 2022-08-29 17:03 | disposition home or self-care (01) ==
LOC: JD.ED 16:21
DX: F10.920 Alcohol use, unspecified with intoxication, uncomplicated (principal); I10 Essential (primary) hypertension; Z91.018 Allergy to other foods
CPT/HCPCS: 99284

== ENCOUNTER 2022-09-25 17:45 | Emergency (ER) | payer MEDICAID, OTHER ==
[2022-09-25 18:04] VITALS: BP 169/125; PULSE 110
[2022-09-25] MEDS ORDERED: Haloperidol Lactate 5 MG/ML SDV IM ONE (18:20)
== END 2022-09-25 19:30 | disposition home or self-care (01) ==
LOC: JD.ED 17:45
DX: R07.89 Other chest pain (principal); R51.9 Headache, unspecified; I10 Essential (primary) hypertension; Z91.018 Allergy to other foods; W19.XXXA Unspecified fall, initial encounter
CPT/HCPCS: 70450; 71250; 96372; 99283; J1630; 99284

== ENCOUNTER 2022-11-28 10:17 | Emergency (ER) | payer OTHER, MEDICAID ==
[2022-11-28 10:44] VITALS: BP 102/68; PULSE 78
[2022-11-28] MEDS ORDERED: Lactated Ringers 1,000 ML IV SCH ×2 (10:45→13:45)
[2022-11-28] MEDS ORDERED: FOMEPIZOLE IV ONE (11:00)
[2022-11-28] MEDS ORDERED: SODIUM CHLORIDE 0.9% IV ONE (11:00)
[2022-11-28] MEDS ORDERED: Ondansetron 4 MG/2 ML SDV IVPUSH ONE (11:47)
[2022-11-28] MEDS ORDERED: propofoL 100 ML ONE (12:14)
[2022-11-28] MEDS ORDERED: Midazolam 1 MG/ML 5 ML SDV IVPUSH ONE (12:19)
[2022-11-28] MEDS ORDERED: propofoL 100 ML IV SCH (12:20)
[2022-11-28] MEDS ORDERED: Propofol 200 MG/20 ML SDV IVPUSH ONE ×2 (12:21→12:55)
[2022-11-28] MEDS ORDERED: Succinylcholine 200 MG/10 ML MDV IV ONE (12:22)
[2022-11-28 13:26] LABS: CORONAVIRUS COVID-19 NAA NEGATIVE (NEGATIVE)
[2022-11-28] MEDS ORDERED: Fomepizole 1.5 GM in Sodium Chloride 0.9% 100 ML IV SCH (23:00)
== END 2022-11-28 15:09 ==
LOC: JD.ED 10:17
DX: T51.1X1A Toxic effect of methanol, accidental (unintentional), initial encounter (principal); F10.10 Alcohol abuse, uncomplicated; I10 Essential (primary) hypertension; Z91.018 Allergy to other foods; Z20.822 Contact with and (suspected) exposure to COVID-19
CPT/HCPCS: 0240U; 31500; 36415; 36600; 51702; 70450; 71045; 80053; 80143; 80179; 80306; 80307; 82803; 83605; 84443; 85025; 93005; 96361; 96365; 96375; 99285; J0330; J1451; J2250; J2405; J2704; J3490; J7120; 93010